=== PATIENT | female | born 1980 | race Caucasian/White ===

== ENCOUNTER 2019-01-19 10:50 | Inpatient (IN) | payer MEDICAID ==
[2019-01-19] MEDS ORDERED: METHYLERGONOVINE 0.2 MG INJ IM (14:00)
[2019-01-19] MEDS ORDERED: OXYTOCIN 30 UNITS/LR 500 ML IV ×2 (14:00→20:30)
[2019-01-19] MEDS ORDERED: LIDOCAINE 1% (MPF) 30 ML INJ INJ (14:00)
[2019-01-19] MEDS ORDERED: CARBOPROST 250 MCG INJ IM (14:00)
[2019-01-19] MEDS ORDERED: MISOPROSTOL 200 MCG TAB PR (14:00)
[2019-01-19 14:57] LABS: ADD MAN DIFF? NO
[2019-01-19 15:23] LABS: INR 0.84; PROTIME 11.6 Sec (11.9-14.9); PT RATIO 0.9
[2019-01-19] MEDS: LACTATED RINGER'S 1,000 ML IV ×2 (15:23→20:22)
[2019-01-19 15:24] LABS: PARTIAL THROMBOPLASTIN TIME 25.7 Sec (23.0-35.0)
[2019-01-19 15:36] LABS: ABNORMAL IP MESSAGE 1; BASOPHILS % 0.5 % (0.0-2.0); EOSINOPHILS % 0.4 % (0.0-7.0); HEMATOCRIT 37.5 % (37.0-47.0); HEMOGLOBIN 12.6 g/dl (12.0-16.0); LYMPHOCYTES # 1.9 10^3/ul (0.8-2.9); LYMPHOCYTES % 23.8 % (15.0-51.0); MEAN CORPUSCULAR HEMOGLOBIN 28.8 pg (29.0-33.0); MEAN CORPUSCULAR HGB CONC 33.6 g/dl (32.0-37.0); MEAN CORPUSCULAR VOLUME 85.8 fl (82.0-101.0); MEAN PLATELET VOLUME 13.3 fl (7.4-10.4); MONOCYTE # 0.4 10^3/ul (0.3-0.9); MONOCYTES % 4.7 % (0.0-11.0); NEUTROPHIL # 5.5 10^3/ul (1.6-7.5); NEUTROPHILS % 70.1 % (39.0-77.0); PLATELET COUNT 157 10^3/UL (140-415); RED BLOOD COUNT 4.37 10^6/ul (4.20-5.40)
[2019-01-19 15:36] LABS: WHITE BLOOD COUNT 7.9 10^3/ul (4.8-10.8)
[2019-01-19 15:37] LABS: POSITIVE DIFF @See below
[2019-01-19] MEDS: AMPICILLIN 2 GM/NS (PMX) 100 ML IV (15:51)
[2019-01-19] MEDS: MISOPROSTOL 50 MCG CAPSULE PO (15:52)
[2019-01-19 15:55] LABS: HEPATITIS B SURFACE ANTIGEN NEGATIVE (NEGATIVE)
[2019-01-19 16:23] LABS: RAPID PLASMA REAGIN NONREACTIVE (NR)
[2019-01-19] MEDS: BUTORPHANOL 2 MG INJ IV (20:22)
[2019-01-19] MEDS: AMPICILLIN 1 GM/NS (PMX) 50 ML IV (20:26)
[2019-01-19] MEDS ORDERED: FENTAnyl 2MCG/ML-ROPIV 0.2% 100 ML (21:43)
[2019-01-19] MEDS ORDERED: DIPHENHYDRAMINE 50 MG INJ IV (22:00)
[2019-01-19] MEDS ORDERED: ONDANSETRON 4 MG INJ IV (22:00)
[2019-01-19] MEDS ORDERED: FENTAnyl 2MCG/ML-ROPIV 0.2% 100 ML BAG EPI (22:00)
[2019-01-19] MEDS ORDERED: NALOXONE (0.4 MG/ML) INJ IV (22:00)
[2019-01-20] MEDS ORDERED: OXYCODONE/ASPIRIN (4.88/325) TAB PO
[2019-01-20] MEDS ORDERED: ONDANSETRON 4 MG INJ IV
[2019-01-20] MEDS ORDERED: MISOPROSTOL 200 MCG TAB PR
[2019-01-20] MEDS ORDERED: CARBOPROST 250 MCG INJ IM
[2019-01-20] MEDS ORDERED: NACL 0.9% 3 ML SYG IV
[2019-01-20] MEDS ORDERED: METHYLERGONOVINE 0.2 MG INJ IM
[2019-01-20] MEDS ORDERED: ACETAMINOPHEN 325 MG TAB PO
[2019-01-20] MEDS ORDERED: SENNA/DOCUSATE NA (8.6MG/50MG) TAB PO
[2019-01-20] MEDS ORDERED: OXYTOCIN 30 UNITS/LR 500 ML IV
[2019-01-20] MEDS: OXYTOCIN 30 UNITS/LR 500 ML IV ×3 (00:42→04:26)
[2019-01-20] MEDS: BENZOCAINE 20% 56 ML SPRAY TOP (01:32)
[2019-01-20] MEDS: LANOLIN HPA 1 PKT TOP ×2 (01:32→17:24)
[2019-01-20] MEDS: WITCH HAZEL/GLYCERIN PAD PR (01:32)
[2019-01-20] MEDS: IBUPROFEN 600 MG TAB PO ×4 (05:44→17:24)
[2019-01-20 07:41] LABS: ADD MAN DIFF? NO
[2019-01-20 07:51] LABS: WHITE BLOOD COUNT 10.4 10^3/ul (4.8-10.8)
[2019-01-20 07:51] LABS: ABNORMAL IP MESSAGE 1; BASOPHILS % 0.4 % (0.0-2.0); EOSINOPHILS % 0.1 % (0.0-7.0); HEMATOCRIT 35.4 % (37.0-47.0); LYMPHOCYTES # 2.1 10^3/ul (0.8-2.9); LYMPHOCYTES % 19.7 % (15.0-51.0); MEAN CORPUSCULAR HEMOGLOBIN 28.8 pg (29.0-33.0); MEAN CORPUSCULAR HGB CONC 33.9 g/dl (32.0-37.0); MEAN CORPUSCULAR VOLUME 85.1 fl (82.0-101.0); MEAN PLATELET VOLUME 12.8 fl (7.4-10.4); MONOCYTE # 0.6 10^3/ul (0.3-0.9); MONOCYTES % 5.8 % (0.0-11.0); NEUTROPHIL # 7.6 10^3/ul (1.6-7.5); NEUTROPHILS % 73.5 % (39.0-77.0); PLATELET COUNT 136 10^3/UL (140-415); RED BLOOD COUNT 4.16 10^6/ul (4.20-5.40)
[2019-01-20 07:58] LABS: POSITIVE DIFF @See below
[2019-01-20] MEDS: SENNA/DOCUSATE NA (8.6MG/50MG) TAB PO ×2 (08:43→22:20)
[2019-01-20] MEDS: PRENATAL VITAMIN PO (08:43)
[2019-01-20] MEDS: OXYCODONE/ASPIRIN (4.88/325) TAB PO (22:21)
[2019-01-21] MEDS: IBUPROFEN 600 MG TAB PO ×3 (06:06→12:03)
[2019-01-21] MEDS: MEASLES,MUMPS,RUBELLA VACCINE INJ SC* (09:00)
[2019-01-21] MEDS: SENNA/DOCUSATE NA (8.6MG/50MG) TAB PO (09:24)
[2019-01-21] MEDS: PRENATAL VITAMIN PO (09:25)
== END 2019-01-21 15:43 | disposition home or self-care (01) | DRG 807 ==
LOC: L-D 10:50 → PP1 01-20 01:04 → L-D 13:38
PROVIDERS: Obstetrics & Gynecology
PROC: 10E0XZZ Delivery of Products of Conception, External Approach (ICD-10-PCS; principal; 2019-01-19)
PROC: 0HQ9XZZ Repair Perineum Skin, External Approach (ICD-10-PCS; 2019-01-19)
DX: O41.03X0 Oligohydramnios, third trimester, not applicable or unspecified (principal); Z37.0 Single live birth; O70.0 First degree perineal laceration during delivery; O69.81X0 Labor and delivery complicated by cord around neck, without compression, not applicable or unspecified; Z3A.40 40 weeks gestation of pregnancy
CPT/HCPCS: 62322; 76815; 85025; 85610; 85730; 86592; 86850; 86900; 86901; 87340; 99464